=== PATIENT | male | born 1945 | race Caucasian/White ===

== ENCOUNTER 2018-06-24 14:40 | Inpatient (IN) | payer MEDICARE ==
[~2018-06-24 14:40] MED LIST: ISOVUE-370 76%-LOCM 1 ML ONE
[2018-06-24 15:06] LABS: Hemoglobin 13.3 g/dL (14.0-18.0); Mean Corpuscular HGB CONC 33.5 g/dL (32.0-36.0); Mean Corpuscular Hemoglobin 31.1 pg (27.0-31.0); Mean Corpuscular Volume 92.7 fL (78.0-98.0); Mean Platelet Volume 7.1 fL (7.4-10.4); Platelet Count 207 thou/uL (130-400); RBC Distribution Width 12.1 % (11.5-14.5); Red Blood Cell (RBC) Count 4.27 mill/uL (4.70-6.10); White Blood Cell (WBC) Count 3.7 thou/uL (4.8-10.8)
--- NOTE | 2018-06-24 15:07 | RAD ---
PORTABLE CHEST: History: Cough, fever. FINDINGS: Heart size and mediastinum within normal limits. The lungs are clear of infiltrates. There is slight elevation of the right hemidiaphragm. IMPRESSION: No active intrathoracic disease. POS: TPC
[2018-06-24 15:23] LABS: Band 27 % (5-11); Lymphocytes 8 % (21-51); MDiff Complete? YES; Neutrophil 65 % (42-75); Platelet Morphology Comment Appears Adequate; RBC Morphology Normal
[2018-06-24 15:42] LABS: Bilirubin Small (Negative); Blood, Urine Large (Negative); Clarity TURBID (Clear); Glucose, Urine (Dipstick) Negative (Negative); Leukocyte Large (Negative); Nitrite Negative (Negative); Protein, Urine (Dipstick) 100 mg/dL (Neg-Trace); Specific Gravity, Urine 1.027 (1.002-1.036); pH, Urine 5.5 (5.0-9.0)
[2018-06-24 15:44] LABS: ALT (SGPT) 23 U/L (8-55); AST (SGOT) 18 U/L (5-34); Albumin 3.9 g/dL (3.4-4.8); Alkaline Phosphatase 97 U/L (40-150); Anion Gap 18 mmol/L (10-20); BUN (Urea Nitrogen) 19 mg/dL (8.4-25.7); CK (CPK) 157 U/L (30-200); Calc. Creatinine Clearance 0 mL/min (70-130); Calcium 8.5 mg/dL (7.8-10.44); Carbon Dioxide 16 mmol/L (23-31); Chloride 105 mmol/L (98-107); Estimated GFR-MDRD 61; Globulin 2.6 g/dL (2.4-3.5); Glucose 139 mg/dL (83-110); Lipase 14 U/L (8-78); Potassium 3.8 mmol/L (3.5-5.1); Protein, Total 6.5 g/dL (5.8-8.1); Sodium 135 mmol/L (136-145)
[2018-06-24 15:48] LABS: Bacteria/HPF 4+ HPF (None Seen); Hyaline Casts/LPF 4-6 HYALINE CAST LPF (0-3 Hyaline); Pathc Cast-AUWi Flag 1.25 (0-2.49); Squamous Epithelial 0-3 HPF (0-3)
--- NOTE | 2018-06-24 19:21 | CT ---
CT ABDOMEN AND PELVIS WITH CONTRAST 06/24/18 Multiple axial tomograms obtained through the abdomen and pelvis with IV enhancement. INDICATIONS: Abdominal pain. Sepsis. Small nodule in the anterior right lung base measuring in the 5 to 6 mm range. Streaky atelectasis o r infiltrate in both lung bases slightly more prominent on the right. Liver, spleen, and pancreas unremarkable. Adrenal glands normal. Kidneys show mild bilateral perinephric stranding and perinephric edema. There is no hydronephrosis. Both kidneys show symmetric function and enhancement. No evidence of urinary tract calculus. Urinary bladder is mildly distended. There is mild bladder wall thickening. The prostate is prominent and the re is heterogeneity in the prostate gland with areas of low attenuation present. Small bowel loops normal caliber. Scattered diverticula along the left colon without evidence of dive rticulitis. Numerous postoperative clips in the left lower quadrant and pelvic region. Aorta normal caliber. No adenopathy seen. Surgical clips in the subcutaneous and abdominal wall left mid abdomen. IMPRESSION: 1. Perinephric stranding and edema. Prostatic hypertrophy with heterogeneity in the prostate. Th ere are areas of low attenuation in the prostate which could represent abscess formation. There is mi ld bladder wall thickening. Suggest urology consultation and consider urinary tract infection. 2. Tiny nodule in the anterior right lung base and bibasilar atelectasis in the lung bases. Code LN POS: L[facility]
[2018-06-24 19:22] LABS: Lactic Acid 1.2 mmol/L (0.5-2.2)
[2018-06-24] MEDS ORDERED: Ondansetron PF 4 MG/2 ML Vial IVP PRN (21:11)
[2018-06-24] MEDS ORDERED: Ondansetron ODT 4 MG TAB PO PRN (21:11)
[2018-06-24] MEDS: Sodium Chloride 0.45% 1,000 ML IV SCH (22:58)
[2018-06-24 23:27] LABS: Lactic Acid 1.4 mmol/L (0.5-2.2)
[2018-06-25] MEDS: Vancomycin HCl 1 GM in Premix Bag 1 BAG IVPB SCH ×2 (00:03→12:26)
[2018-06-25 00:51] VITALS: BMI 26.0
--- NOTE | 2018-06-25 02:11 | HP ---
PRIMARY CARE DOCTOR: No PCP. CODE STATUS: Full code. TIME OF EVALUATION: 7:15 p.m. CHIEF COMPLAINT: Fever. HISTORY OF PRESENT ILLNESS: This is a 73-year-old male patient with past medical history of hyperlipidemia, came to the hospital after having fever, increased urinary frequency, urgency, incontinence, no clear triggers, no alleviating factors. Symptoms were moderate to severe. Symptoms have been present for about a couple of days, getting worse today. REVIEW OF SYSTEMS: CONSTITUTIONAL: The patient has fever, chills, generalized weakness. RESPIRATORY: No cough, sputum production, or shortness of breath. CARDIOVASCULAR: No chest pain or palpitations. GASTROINTESTINAL: No nausea, no vomiting, diarrhea, or abdominal pain. 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 GENITOURINARY: The patient has increased frequency, burning on urination. EXTREMITIES: No leg swelling. All other systems were reviewed and negative, except for the findings mentioned above. PAST MEDICAL HISTORY: As mentioned in the HPI. FAMILY HISTORY:Reviewed and no noncontributory for current presentation. SURGICAL HISTORY: Cholecystectomy, and history of hernia repair. PSYCHIATRIC HISTORY: No previous psych history. SOCIAL HISTORY: The patient drinks socially rarely. No drug use. No smoking history. KNOWN ALLERGIES: No known drug allergies reported. MEDICATIONS: Nexium and atorvastatin. PHYSICAL EXAMINATION: VITAL SIGNS: On presentation, blood pressure 160/100, heart rate 143, respiratory rate was 31, temperature 99.9, oxygen saturation 100 on room air. GENERAL APPEARANCE: The patient is alert, oriented, not in acute distress. HEENT: Eyes, normal conjunctivae. Moist oral mucosa. Anicteric. No JVD. RESPIRATORY: Bilateral air entry. No rales. No wheezing. Symmetric expansion. CARDIOVASCULAR: The patient is tachycardic. Regular rhythm. No murmurs, no gallops, no edema. ABDOMEN: Soft. Normal bowel sounds. MUSCULOSKELETAL: Baseline range of motion. No sternal tenderness. SKIN: Warm and intact. No pallor. No rash. No redness. Peripheral pulses are present. Capillary refill seems to be intact. NEURO: No evidence of any new focal weakness. Baseline speech. Cranial nerves seems to be intact. PSYCH: The patient is in good mood. No anxiety. Optimal judgment. LABORATORY AND DIAGNOSTIC DATA: EKG was reviewed. The patient has sinus tachycardia at a rate of 144 with NC 112, QRS 98, QT corrected 439, incomplete RBBB. Labs were reviewed. The patient has white count 3.7, hemoglobin 13.3, MCV 92.7, platelet count 207. Chemistry 135, potassium 3.9, chloride 105, carbon dioxide 16, anion gap of 18, BUN 19, creatinine 1.18, GFR 61, glucose 139, lactic acid 3.9, calcium 9.5, total bilirubin 2.0. LFTs were negative. Troponin was negative. UA was positive with white count greater than 50, too numerous to count. Chest x-ray was reviewed. The patient has no active intrathoracic disease. CT abdomen and pelvis was done, perinephric stranding and edema, prostatic hypertrophy with heterogeneity in the prostate. There are areas of low attenuation in the prostate, which could represent abscess formation. There is mild bladder wall thickening, suggest Urology consultation and consider urinary tract infection, 2 tiny nodules in the right lung base and bibasilar atelectasis of the lung bases. ASSESSMENT AND PLAN: The patient presented to the hospital with following medical problems: 1. Sepsis, the patient is tachycardic, febrile, the patient is started on antibiotics, continue IV fluids, follow cultures, adjust antibiotics as per culture and sensitivity. Source is prostate abscess with UTI, possible pyelonephritis. Continue hydration as needed for sepsis. 2. Possible prostate abscess, seen on the pelvis CT as above, we will call Urology, we will follow recommendations. 3. Hyponatremia, sodium 135. This is mild, no need for any acute intervention at this point. We will monitor, we will treat accordingly. 4. Lactic acidosis secondary to sepsis, initial lactic acid was 3.9, came down to 1.2. We will treat underlying condition. 5. Urinary tract infection. UA is positive. We will follow cultures, treatment as above. 6. Hyperlipidemia. Low-cholesterol diet is advised. Reconcile home medications. 7. Deep venous thrombosis prophylaxis. 8. Risk assessment, the patient is a high risk due to sepsis. Job ID: [id number] [facility]
[2018-06-25 05:50] LABS: Anion Gap 10 mmol/L (10-20); BUN (Urea Nitrogen) 15 mg/dL (8.4-25.7); Calc. Creatinine Clearance 85 mL/min (70-130); Calcium 8.1 mg/dL (7.8-10.44); Carbon Dioxide 21 mmol/L (23-31); Chloride 109 mmol/L (98-107); Estimated GFR-MDRD 83; Glucose 92 mg/dL (83-110); Potassium 4.3 mmol/L (3.5-5.1); Sodium 136 mmol/L (136-145)
[2018-06-25 06:01] LABS: Hemoglobin 12.4 g/dL (14.0-18.0); Mean Corpuscular HGB CONC 33.2 g/dL (32.0-36.0); Mean Corpuscular Hemoglobin 30.8 pg (27.0-31.0); Mean Corpuscular Volume 92.8 fL (78.0-98.0); Mean Platelet Volume 7.2 fL (7.4-10.4); Platelet Count 178 thou/uL (130-400); RBC Distribution Width 12.3 % (11.5-14.5); Red Blood Cell (RBC) Count 4.02 mill/uL (4.70-6.10); White Blood Cell (WBC) Count 16.1 thou/uL (4.8-10.8)
[2018-06-25 06:02] LABS: Band 28 % (5-11); Lymphocytes 2 % (21-51); MDiff Complete? YES; Monocytes 2 % (0-10); Neutrophil 68 % (42-75); Platelet Morphology Comment Appears Adequate
[2018-06-25] MEDS: Sodium Chloride 0.45% 1,000 ML IV SCH (06:23)
[2018-06-25] MEDS: Acetaminophen 325 MG TAB PO PRN ×2 (10:20→20:26)
[2018-06-25] MEDS: Sodium Chloride 0.9% 1,000 ML IV SCH ×2 (12:34→23:24)
[2018-06-25] MEDS ORDERED: cefTRIAXone\\ROCEPHIN 2 GM in Sodium Chloride 0.9% 100 ML IVPB SCH (14:00)
[2018-06-25] MEDS: Tamsulosin HCl 0.4 MG CAP PO SCH (20:25)
[2018-06-25] MEDS: Saccharomyces boulardii 250 MG CAP PO SCH (20:25)
[2018-06-25] MEDS: Atorvastatin Calcium 10 MG TAB PO SCH (20:26)
[2018-06-25] MEDS ORDERED: Tamsulosin HCl 0.4 MG CAP PO SCH (21:00)
--- NOTE | 2018-06-25 21:40 | PDOC.PN ---
- Subjective Encounter Start Date: 06/25/18 Encounter Start Time: 12:00 Patient seen and examined for Sepsis. Feels better. No N/V. No new complaints. No overnight events - Objective Resuscitation Status - Order Detail: 06/24/18 21:11 Resuscitation Status Routine Resuscitation Status: FULL: Full Resuscitation MAR Reviewed: Yes Vital Signs & Weight: Vital Signs (12 hours) Temp Pulse Resp BP Pulse Ox 06/25/18 16:15 98.0 F 81 16 112/61 100 06/25/18 13:00 98.3 F 88 16 98/54 L 95 Weight Weight 181 lb 9 oz I&O: 06/24/18 06/25/18 06/26/18 06:59 06:59 06:59 Intake Total 1420 1861 Output Total 500 870 Balance 920 991 Result Diagrams: 06/26/18 04:05 06/26/18 04:06 EKG Reviewed by me: Yes (Tele SR) Phys Exam - Physical Examination Constitutional: NAD Respiratory: no wheezing, no rhonchi Cardiovascular: RRR, no rub Gastrointestinal: soft, non-tender, positive bowel sounds Musculoskeletal: no edema Neurological: moves all 4 limbs Dx/Plan - Plan plan discussed w/ family, DVT proph w/SCDs 1. Sepsis with acute organ dysfunction due to E coli UTI/Prostatitis with abscess/Bacteremia 2. Lactic acidosis 3. HLD 4. BPH 5. Hyponatremia PLAN: Add Ceftriaxone DC Vancomcyin Cont Levaquin Cont IVF Await Urology input AM labs Transfer to medical Postvoid residual Review of Systems - Medications/Allergies Allergies/Adverse Reactions: Allergies Allergy/AdvReac Type Severity Reaction Status Date / Time No Known Allergies Allergy Unverified 06/24/18 22:30 Medications: Current Medications Acetaminophen (Tylenol) 650 mg PO Q4H PRN PRN Reason: Headache/Fever/Mild Pain (1-3) Last Admin: 06/25/18 20:26 Dose: 650 mg Atorvastatin Calcium (Lipitor) 10 mg PO HS CINDI Last Admin: 06/25/18 20:26 Dose: 10 mg Levofloxacin 750 mg/ Device 150 mls @ 100 mls/hr IVPB Q24HR CINDI Last Admin: 06/25/18 16:55 Dose: 150 mls Sodium Chloride (Normal Saline 0.9%) 1,000 mls @ 125 mls/hr IV .Q8H CINDI Last Admin: 06/25/18 12:34 Dose: 1,000 mls Ceftriaxone Sodium 2 gm/ (Sodium Chloride) 100 mls @ 200 mls/hr IVPB Q24HR [facility] Last Admin: 06/25/18 14:54 Dose: 100 mls Ondansetron HCl (Zofran Odt) 4 mg PO Q6H PRN PRN Reason: Nausea/Vomiting Ondansetron HCl (Zofran) 4 mg IVP Q6H PRN PRN Reason: Nausea/Vomiting Pantoprazole Sodium (Protonix) 40 mg PO DAILY [facility] Last Admin: 06/25/18 10:14 Dose: 40 mg Saccharomyces Boulardii (Florastor) 250 [address] [facility] Last Admin: 06/25/18 20:25 Dose: 250 mg Sodium Chloride (Flush - Normal Saline) 10 ml IVF Q12HR [facility] Last Admin: 06/25/18 10:15 Dose: 10 ml Sodium Chloride (Flush - Normal Saline) 10 ml IVF PRN PRN PRN Reason: Saline Flush Tamsulosin HCl (Flomax) 0.4 mg PO [facility] Last Admin: 06/25/18 20:25 Dose: 0.4 mg
--- NOTE | 2018-06-26 00:30 | CON ---
DATE OF CONSULTATION: 06/25/2018 REASON FOR CONSULTATION: Sepsis secondary to urinary tract infection, possible prostate abscess. HISTORY OF PRESENT ILLNESS: Mr. Sanchez is a 73-year-old male with past urologic history significant for microscopic hematuria, status post negative workup by his urologist in [place], Dr. Brent Campos. The patient was visiting family in [place], [place]. On the way home, he developed fever, dizziness, frequent and urgent urination. His condition worsened and they stopped at the [facility] in [place]. The patient was found to be febrile and tachycardic with heart rate up to the 140s. Urinalysis was consistent with urinary tract infection. A CT of the abdomen and pelvis was performed, which demonstrated possible prostate abscess. The patient was admitted, started on broad-spectrum IV antibiotics. Urine culture and blood culture both growing gram-negative rods at this time. Urology was consulted for further evaluation. Over the course of the next 36 hours, the patient has had significant improvement in his symptoms. He is voiding much better. Initially, he was voiding up to every hour; however, right now is voiding every 2 to 3 hours. No Billings catheter was ever placed. He has had postvoid residuals ranging in the 100 to 200 range. His tachycardia has improved. He is much more alert and oriented per his , and he has not had any high-grade fever since antibiotics were initiated. The patient states he has an appointment with Dr. Campos in [place] coming up. He evidently has had cystoscopy for workup of what sounds to be microscopic hematuria in the past. REVIEW OF SYSTEMS: Full 12-point review of systems was performed and is negative other than that mentioned in HPI. PAST MEDICAL HISTORY: Hyperlipidemia. PAST SURGICAL HISTORY: Cholecystectomy, hernia repair. FAMILY HISTORY: Noncontributory. SOCIAL HISTORY: He drinks socially on occasion. No tobacco or illicit drugs. MEDICATIONS: 1. Nexium. 2. Atorvastatin. ALLERGIES: NO KNOWN DRUG ALLERGIES. PHYSICAL EXAMINATION: VITAL SIGNS: Temperature is 98.0, heart rate 81, respirations 16, oxygen saturation 100% on room air, and blood pressure 112/61. GENERAL: He is alert and oriented x3, in no apparent distress. HEENT: Normocephalic and atraumatic. NECK: Supple. No masses or lymphadenopathy. CARDIOVASCULAR: Regular rate and rhythm. PULMONARY: Breathing unlabored. No wheezing. ABDOMEN: Soft, nontender/nondistended. No masses or organomegaly. No suprapubic tenderness to palpation. No suprapubic fullness. No CVA tenderness. GENITOURINARY: Circumcised penis without concerning lesion. Meatus normal. Scrotum normal. Testes and epididymides palpably normal bilaterally. EXTREMITIES: Warm and well perfused. No edema. NEUROLOGIC: No focal deficits. LABORATORY DATA: White blood cell count 16.1, hemoglobin 12.4, hematocrit 37.3, platelets 178. Sodium 136, potassium 4.3, chloride 109, bicarbonate 21, BUN 15, creatinine 0.9. MICROBIOLOGY DATA: Urine culture, presumptive E coli, sensitivities pending. Blood culture x2 demonstrates E coli with sensitivities pending. RADIOLOGY DATA: CT of the abdomen and pelvis performed on 06/24/2018. These films were reviewed. There is no hydroureteronephrosis. No urolithiasis noted. There is some heterogeneity with possible fluid in the prostate and some bladder wall thickening. Bladder is not distended. ASSESSMENT: A 73-year-old male with sepsis secondary to Escherichia coli urinary tract infection, possible prostate abscess. PLAN: I reviewed the natural history and clinical implications of complicated, febrile urinary tract infections with the patient in detail. I explained the need for adequate urinary drainage. At this point, the patient is emptying his bladder relatively well. I performed a bladder scan at the bedside and he had a residual of approximately 115 mL. The patient would like to avoid a Billings catheter at this time. He may have an early prostate abscess, although he is improving clinically on broad-spectrum IV antibiotics. Sensitivities are pending. At this point, continue IV antibiotic therapy. If he continues to improve clinically, he can be discharged to home on culture specific antibiotics, minimum of 2-week course. The patient will require close Urologic followup. He has established with Dr. Campos in [place]. I will contact Dr. Campos myself and try to establish a close followup appointment within the next few days with him. If clinically he deteriorates, he may require either transurethral or ultrasound-guided transrectal unroofing of this fluid within the prostate. We will start the patient on daily tamsulosin as well. Thank you for allowing me to participate in the care of this patient. Job ID: [id number]
[2018-06-26 04:55] LABS: #Eosinphils 0.1 thou/uL (0.0-0.7); #Lymphocytes 0.8 thou/uL (1.20-3.40); #Monocytes 0.7 thou/uL (0.11-0.59); #Neutrophils 8.6 thou/uL (1.40-6.50); %Basophils 0.1 % (0.0-1.0); %Eosinophils 0.6 % (0.0-10.0); %Lymphocytes 7.7 % (21.0-51.0); %Neutrophils 84.6 % (42.0-75.0); Hemoglobin 11.4 g/dL (14.0-18.0); Mean Corpuscular HGB CONC 33.6 g/dL (32.0-36.0); Mean Corpuscular Hemoglobin 30.9 pg (27.0-31.0); Mean Corpuscular Volume 92.1 fL (78.0-98.0); Mean Platelet Volume 7.8 fL (7.4-10.4); Platelet Count 156 thou/uL (130-400); RBC Distribution Width 12.1 % (11.5-14.5); Red Blood Cell (RBC) Count 3.69 mill/uL (4.70-6.10); White Blood Cell (WBC) Count 10.2 thou/uL (4.8-10.8)
[2018-06-26 05:16] LABS: ALT (SGPT) 15 U/L (8-55); AST (SGOT) 22 U/L (5-34); Albumin 2.7 g/dL (3.4-4.8); Alkaline Phosphatase 66 U/L (40-150); Anion Gap 11 mmol/L (10-20); BUN (Urea Nitrogen) 17 mg/dL (8.4-25.7); Bilirubin, Total 0.4 mg/dL (0.2-1.2); Calc. Creatinine Clearance 91 mL/min (70-130); Carbon Dioxide 20 mmol/L (23-31); Chloride 110 mmol/L (98-107); Estimated GFR-MDRD 90; Globulin 2.5 g/dL (2.4-3.5); Glucose 100 mg/dL (83-110); Magnesium 1.7 mg/dL (1.6-2.6); Potassium 3.9 mmol/L (3.5-5.1); Protein, Total 5.2 g/dL (5.8-8.1); Sodium 137 mmol/L (136-145)
[2018-06-26] MEDS: Sodium Chloride 0.9% 1,000 ML IV SCH ×2 (06:08→15:33)
[2018-06-26] MEDS: Acetaminophen 325 MG TAB PO PRN ×2 (08:55→19:33)
--- NOTE | 2018-06-26 12:15 | CON ---
DATE OF CONSULTATION: REASON FOR CONSULTATION: Bacteremia with pyelonephritis, prostatitis. HISTORY OF PRESENT ILLNESS: A 73-year-old admitted with a history of hyperlipidemia, previous BPH who had been managed I believe in [place] where he is from. He is actually from [place], but he went to [place] to a urologist there for periodic monitoring of his BPH. He had been on Flomax and there had been no evidence of elevated PSA. The patient then came here to visit family and developed urinary symptoms with fever. He did have some incontinence and increased urinary frequency with urgency, but no pain. He presented to the emergency room and his maximum temperature on arrival was 99.9. His BP was 160/100 and tachycardia to 143, O2 saturations were 100. He did not appear toxic, did not have any pain, was alert and oriented on arrival. The lung examination showed normal lung sounds. The heart examination other than tachycardia was normal. The abdomen was not tender to palpation. There was no evidence of distention or peritoneal signs. LABORATORY DATA: The initial lab data with a white cell count of 3.7 with a predominance of bands at 27% and creatinine in the 1.18. Liver profile was normal except for bilirubin of 2.0. Albumin was 3.9. Troponin was normal. Sodium 135. Urinalysis with greater than 50 wbc's. The patient had an abdomen and pelvis CT scan with perinephric stranding in both kidneys without hydronephrosis. No calculus or obstruction. Urinary bladder was mildly distended. The prostate had heterogeneity noted. Two sets of blood cultures with E. coli with a broad susceptibility profile. Currently, he is feeling better. He is still not back to normal. No headaches, visual symptoms, sore throat, odynophagia dysphagia. No cough, sputum production, chest pain, no abdominal pain or diarrhea. Dysuria and frequency have improved. No genitourinary symptoms. He is voiding in the urinal. PAST MEDICAL HISTORY: 1. Hypertension. 2. Hyperlipidemia. 3. BPH. PAST SURGICAL HISTORY: 1. Cholecystectomy. 2. Hernia repair. SOCIAL HISTORY: He lives in [place]. He is retired and drinks occasionally and there is no smoking history. . ALLERGIES: NONE. CURRENT MEDICATIONS: 1. Ceftriaxone. 2. Levofloxacin. PHYSICAL EXAMINATION: VITAL SIGNS: T-max 100.6. He has been afebrile since, BP normal. Other vital signs are normal. O2 saturation 98%. SKIN: Examination is not remarkable. NECK: Neck is supple. No jugular venous distention. No lymphadenopathy. HEENT: Ocular movements conjugate. Oral cavity unremarkable. LUNGS: Symmetric. Clear breath sounds. S1, S2. Regular rate. No S3 or S4. ABDOMEN: Soft, not distended or tender. No ascites. No bladder distention. No genital abnormalities. No joint inflammatory activity. Pulses 1+ in dorsalis pedis. Neurologic: Nonfocal including cognitive function. LABORATORY DATA: Followup labs, white cell count down to 10.2, hemoglobin 11, platelets 156. Sodium 136, creatinine 0.9. IMAGING: Chest x-ray with no abnormalities noted. ASSESSMENT: Chronic benign prostatic hypertrophy, now with invasive urinary tract infection with some element of prostatitis, may have early prostatic abscess. He does have evidence of pyelonephritis too as well. The organism is broadly susceptible to various antimicrobials. There is no evidence of obstruction. DISCUSSION: The main concern here would be with possible development of prostatic abscess. Sometimes those need to be surgically drained, although in this case, probably a conservative management will suffice in view of the rapid improvement. I would nonetheless treat him for a longer periods of time, 4-6 weeks with oral antimicrobial therapy and we could choose quinolone or Bactrim for discharge planning. Job ID: [id number]
[2018-06-26] MEDS ORDERED: Sodium Chloride 0.9% 1,000 ML IV SCH (17:54)
--- NOTE | 2018-06-26 18:52 | PRG ---
DATE OF SERVICE: 06/26/2018 SUBJECTIVE: Mr. Sanchez is doing much better. He is urinating better. He reports his balance is better. He has been ambulating. He has been afebrile. He has no complaints at this time. OBJECTIVE: VITAL SIGNS: Temperature 98.1, pulse 81, respirations 12, blood pressure 121/79, oxygen saturation 98% on room air. GENERAL: He is alert and oriented x3, in no apparent distress. CARDIOVASCULAR: Regular rate and rhythm. PULMONARY: Breathing unlabored. ABDOMEN: Soft, nontender/nondistended. No masses or organomegaly. No suprapubic tenderness to palpation. No suprapubic fullness. EXTREMITIES: Warm and well perfused. No edema. NEUROLOGICAL: No focal deficits. LABORATORY DATA: White blood cell count 10.2, hemoglobin 11.4, hematocrit 34, platelets 156. Microbiology; urine culture and blood culture with E. coli. ASSESSMENT: A 73-year-old male with sepsis secondary to urinary tract infection and possible early prostate abscess. PLAN: The patient continues to improve clinically. He likely will need IV antibiotics throughout the next 24 hours. If he continues to improve, the patient can be discharged home on culture specific antibiotics. I have discussed this with his urologist in [place], [place], Dr. Campos. The patient has a followup appointment with Dr. Campos on July 02 at 9:30 a.m. in [place]. I reiterated to the patient that he should keep this appointment. He will also need to bring a full set of records from this hospitalization as well as a disc with a copy of his CT scan images on it. If the patient's clinical course deteriorates in the interim, additional urologic intervention may be necessary. Job ID: [id number]
[2018-06-26] MEDS: Atorvastatin Calcium 10 MG TAB PO SCH (19:34)
[2018-06-26] MEDS: Tamsulosin HCl 0.4 MG CAP PO SCH (19:34)
[2018-06-26] MEDS: Saccharomyces boulardii 250 MG CAP PO SCH (19:34)
[2018-06-26] MEDS ORDERED: Senokot 8.6 MG TAB PO PRN (20:48)
--- NOTE | 2018-06-26 20:51 | PDOC.PN ---
- Subjective Encounter Start Date: 06/26/18 Encounter Start Time: 16:30 Patient seen and examined for Sepsis. No dysuria/hematuria/frequency. No new complaints. No overnight events - Objective Resuscitation Status - Order Detail: 06/24/18 21:11 Resuscitation Status Routine Resuscitation Status: FULL: Full Resuscitation MAR Reviewed: Yes Vital Signs & Weight: Vital Signs (12 hours) Temp Pulse Resp BP Pulse Ox 06/26/18 20:30 99.8 F H 06/26/18 20:00 95 06/26/18 19:39 101.5 F H 89 20 133/74 95 06/26/18 16:10 98.1 F 88 16 158/79 H 96 06/26/18 12:37 65 16 141/70 H 96 06/26/18 08:55 98.5 F 72 16 128/68 98 Weight Weight 181 lb 9 oz I&O: 06/25/18 06/26/18 06/27/18 06:59 06:59 06:59 Intake Total 1420 3464 340 Output Total 500 2270 Balance 920 1194 340 Result Diagrams: 06/26/18 04:05 06/26/18 04:06 Phys Exam - Physical Examination Constitutional: NAD Respiratory: no wheezing, no rhonchi Cardiovascular: RRR, no rub Gastrointestinal: soft, non-tender, positive bowel sounds Musculoskeletal: no edema Neurological: moves all 4 limbs Dx/Plan - Plan DVT proph w/SCDs 1. Sepsis with acute organ dysfunction due to E coli UTI/Prostatitis with abscess/Bacteremia 2. Lactic acidosis 3. HLD 4. BPH 5. Hyponatremia PLAN: Cont Levaquin DC IVF Urology/ID input appreciated Cont Flomax Microbiology 06/24/18 Unknown Urine clean catch Urine Culture - Final Escherichia coli 06/24/18 14:50 Venous blood - Left Hand Blood Culture - Preliminary Escherichia coli 06/24/18 14:45 Venous blood - Right Hand Blood Culture - Preliminary Escherichia coli Review of Systems - Review of Systems Respiratory: negative: Cough, Dry, Shortness of Breath, Hemoptysis, SOB with Excertion, Pleuritic Pain, Sputum, Wheezing Cardiovascular: negative: chest pain, palpitations, orthopnea, paroxysmal nocturnal dyspnea, edema, light headedness, other - Medications/Allergies Allergies/Adverse Reactions: Allergies Allergy/AdvReac Type Severity Reaction Status Date / Time No Known Allergies Allergy Unverified 06/24/18 22:30 Medications: Current Medications Acetaminophen (Tylenol) 650 mg PO Q4H PRN PRN Reason: Headache/Fever/Mild Pain (1-3) Last Admin: 06/26/18 19:33 Dose: 650 mg Atorvastatin Calcium (Lipitor) 10 mg PO [facility] Last Admin: 06/26/18 19:34 Dose: 10 mg Levofloxacin 750 mg/ Device 150 mls @ 100 mls/hr IVPB Q24HR [facility] Last Admin: 06/26/18 17:43 Dose: 150 mls Ondansetron HCl (Zofran Odt) 4 mg PO Q6H PRN PRN Reason: Nausea/Vomiting Ondansetron HCl (Zofran) 4 mg IVP Q6H PRN PRN Reason: Nausea/Vomiting Pantoprazole Sodium (Protonix) 40 mg PO DAILY [facility] Last Admin: 06/26/18 08:55 Dose: 40 mg Saccharomyces Boulardii (Florastor) 250 mg PO [facility] Last Admin: 06/26/18 19:34 Dose: 250 mg Sodium Chloride (Flush - Normal Saline) 10 ml IVF Q12HR [facility] Last Admin: 06/26/18 19:34 Dose: 10 ml Sodium Chloride (Flush - Normal Saline) 10 ml IVF PRN PRN PRN Reason: Saline Flush Tamsulosin HCl (Flomax) 0.4 mg PO [facility] Last Admin: 06/26/18 19:34 Dose: 0.4 mg
[2018-06-27] MEDS: Atorvastatin Calcium 10 MG TAB PO SCH (20:03)
[2018-06-27] MEDS: Saccharomyces boulardii 250 MG CAP PO SCH (20:03)
[2018-06-27] MEDS: Tamsulosin HCl 0.4 MG CAP PO SCH (20:03)
--- NOTE | 2018-06-27 23:12 | PDOC.PN ---
- Subjective Encounter Start Date: 06/27/18 Encounter Start Time: 10:45 Patient seen and examined for Sepsis. Urinary frequency +. No new complaints. No overnight events - Objective Resuscitation Status - Order Detail: 06/24/18 21:11 Resuscitation Status Routine Resuscitation Status: FULL: Full Resuscitation MAR Reviewed: Yes Vital Signs & Weight: Vital Signs (12 hours) Temp Pulse Resp BP BP Pulse Ox 06/27/18 15:54 98.2 F 91 16 165/90 H 06/27/18 11:35 98.7 F 84 16 145/79 H 97 Weight Weight 181 lb 9 oz I&O: 06/26/18 06/27/18 06/28/18 06:59 06:59 06:59 Intake Total 3464 1140 2560 Output Total 2270 2000 Balance 1194 -860 2560 Result Diagrams: 06/28/18 06:43 06/28/18 06:43 Phys Exam - Physical Examination Constitutional: NAD Respiratory: no wheezing, no rhonchi Cardiovascular: RRR, no rub Gastrointestinal: soft, non-tender, positive bowel sounds Musculoskeletal: no edema Neurological: moves all 4 limbs Dx/Plan - Plan DVT proph w/SCDs 1. Sepsis with acute organ dysfunction due to E coli UTI/Prostatitis with abscess/Bacteremia 2. Lactic acidosis 3. HLD 4. BPH 5. Hyponatremia PLAN: Start IV Cipro per ID DC Levaquin Monitoring overnight due to fever this AM Cont Flomax DC in AM if stable Review of Systems - Review of Systems Respiratory: negative: Cough, Dry, Shortness of Breath, Hemoptysis, SOB with Excertion, Pleuritic Pain, Sputum, Wheezing Cardiovascular: negative: chest pain, palpitations, orthopnea, paroxysmal nocturnal dyspnea, edema, light headedness, other - Medications/Allergies Allergies/Adverse Reactions: Allergies Allergy/AdvReac Type Severity Reaction Status Date / Time No Known Allergies Allergy Unverified 06/24/18 22:30 Medications: Current Medications Acetaminophen (Tylenol) 650 mg PO Q4H PRN PRN Reason: Headache/Fever/Mild Pain (1-3) Last Admin: 06/26/18 19:33 Dose: 650 mg Atorvastatin Calcium (Lipitor) 10 mg PO HS CINDI Last Admin: 06/27/18 20:03 Dose: 10 mg Ciprofloxacin/Dextrose 400 mg/ (Device) 200 mls @ 200 mls/hr IVPB Q12HR [facility] Last Admin: 06/27/18 20:03 Dose: 200 mls Ondansetron HCl (Zofran Odt) 4 mg PO Q6H PRN PRN Reason: Nausea/Vomiting Ondansetron HCl (Zofran) 4 mg IVP Q6H PRN PRN Reason: Nausea/Vomiting Pantoprazole Sodium (Protonix) 40 mg PO DAILY [facility] Last Admin: 06/27/18 08:41 Dose: 40 mg Saccharomyces Boulardii (Florastor) 250 mg PO [facility] Last Admin: 06/27/18 20:03 Dose: 250 mg Senna (Senokot) 2 tab PO HSPRN PRN PRN Reason: Constipation Sodium Chloride (Flush - Normal Saline) 10 ml IVF Q12HR [facility] Last Admin: 06/27/18 20:04 Dose: 10 ml Sodium Chloride (Flush - Normal Saline) 10 ml IVF PRN PRN PRN Reason: Saline Flush Tamsulosin HCl (Flomax) 0.4 mg PO [facility] Last Admin: 06/27/18 20:03 Dose: 0.4 mg
[2018-06-28 07:14] VITALS: BP 146/80; TEMP 98
[2018-06-28 07:23] LABS: #Eosinphils 0.2 thou/uL (0.0-0.7); #Lymphocytes 1.3 thou/uL (1.20-3.40); #Monocytes 0.9 thou/uL (0.11-0.59); #Neutrophils 4.4 thou/uL (1.40-6.50); %Basophils 0.6 % (0.0-1.0); %Eosinophils 2.8 % (0.0-10.0); %Lymphocytes 18.7 % (21.0-51.0); %Monocytes 13.6 % (0.0-10.0); %Neutrophils 64.4 % (42.0-75.0); Hemoglobin 12.2 g/dL (14.0-18.0); Mean Corpuscular HGB CONC 33.5 g/dL (32.0-36.0); Mean Corpuscular Hemoglobin 30.4 pg (27.0-31.0); Mean Corpuscular Volume 90.8 fL (78.0-98.0); Mean Platelet Volume 7.5 fL (7.4-10.4); Platelet Count 200 thou/uL (130-400); RBC Distribution Width 12.1 % (11.5-14.5); Red Blood Cell (RBC) Count 4.02 mill/uL (4.70-6.10); White Blood Cell (WBC) Count 6.9 thou/uL (4.8-10.8)
[2018-06-28 07:55] LABS: Anion Gap 11 mmol/L (10-20); BUN (Urea Nitrogen) 12 mg/dL (8.4-25.7); Calc. Creatinine Clearance 85 mL/min (70-130); Calcium 8.5 mg/dL (7.8-10.44); Carbon Dioxide 24 mmol/L (23-31); Chloride 107 mmol/L (98-107); Estimated GFR-MDRD 83; Glucose 107 mg/dL (83-110); Magnesium 1.5 mg/dL (1.6-2.6); Potassium 3.7 mmol/L (3.5-5.1); Sodium 138 mmol/L (136-145)
[2018-06-28] MEDS ORDERED: Magnesium Sulfate 2 GM in Sodium Chloride 0.9% 100 ML IVPB SCH (08:45)
[2018-06-28] MEDS ORDERED: Magnesium Chloride 64 MG TAB PO SCH (10:00)
[2018-06-28] MEDS ORDERED: Ciprofloxacin 500 MG TAB PO SCH (10:00)
--- NOTE | 2018-06-28 12:00 | DIS ---
DATE OF ADMISSION: 06/24/2018 DATE OF DISCHARGE: 06/28/2018 DISCHARGE DISPOSITION: Home. Please note, the patient lives in [place]. FOLLOWUP: The patient was advised follow up with his primary urologist in 3 days as scheduled. ALLERGIES: NO KNOWN DRUG ALLERGIES. DISCHARGE MEDICATIONS: 1. Ciprofloxacin 500 mg twice a day. 2. Lipitor 10 mg daily. 3. Florastor 250 mg daily. 4. Flomax 0.4 mg at bedtime. 5. Nexium 20 mg daily. The patient was seen on the day of discharge. Denies any new complaints. No chest pain, shortness of breath, or palpitations reported. BRIEF HOSPITAL COURSE: The patient is a 73-year-old male who presented to the emergency room with fever. His workup was consistent with sepsis secondary to Escherichia coli urinary tract infection/prostatitis with abscess formation. His blood culture 2/2 was positive for Escherichia coli as well. CT scan of the abdomen and pelvis in the emergency room showed perinephric stranding and edema with low attenuation of the prostate, which could represent abscess formation. The prostate was hypertrophied with heterogenicity. There was also mild bladder wall thickening. He showed good improvement with IV quinolones. WBC count on the day of discharge is 6.9 from 16.1. He also had 28% bandemia on admission, which has resolved. His lactic acid on admission was 3.9. He also had abnormal LFTs with total bilirubin 2.0 on admission, which has resolved. He was evaluated by Infectious Disease as well as well as Urology, Dr. Fredis Marte. He will follow up with Dr. Campos in [place] on July 02, at 9:30 a.m. I advised the patient to keep this appointment. A copy of the CT scan of the abdomen was provided on the disc. He is afebrile and has been cleared by consultants for discharge. FINAL DIAGNOSES: 1. Sepsis with acute organ dysfunction secondary to Escherichia coli urinary tract infection/prostatitis with abscess and Escherichia coli bacteremia. 2. Lactic acidosis, resolved. 3. Abnormal liver function tests secondary to sepsis, resolved. 4. Hyperlipidemia. 5. Benign prostatic hypertrophy. 6. Hyponatremia. 7. Hypomagnesemia. Started on replacement. Please note, that this was not replaced intravenously since the patient lost IV access. 8. Chronic anemia. Primary care physician advised to follow. 9. A small nodule in the anterior right lung base measuring 5 to 6 mm. Primary care physician advised to follow. PLAN: Plan was discussed with the patient and the family in detail. He stated understanding. Job ID: [id number] [id number]
== END 2018-06-28 11:22 | disposition home or self-care (01) | DRG 872 ==
LOC: ERS 14:40 → 2NO 21:10 → T4-B 06-26 15:58
PROVIDERS: ADMIT Emergency Medicine; ATTEND Emergency Medicine
DX: A41.9 Sepsis, unspecified organism (principal); N41.2 Abscess of prostate; E87.1 Hypo-osmolality and hyponatremia; N39.0 Urinary tract infection, site not specified; E87.2 Acidosis; E78.5 Hyperlipidemia, unspecified; R65.20 Severe sepsis without septic shock; B96.20 Unspecified Escherichia coli [E. coli] as the cause of diseases classified elsewhere; N41.9 Inflammatory disease of prostate, unspecified; N40.0 Benign prostatic hyperplasia without lower urinary tract symptoms; E83.42 Hypomagnesemia; D64.9 Anemia, unspecified; R91.1 Solitary pulmonary nodule; Z90.49 Acquired absence of other specified parts of digestive tract
CPT/HCPCS: 36415; 71045; 74177; 80048; 80053; 81003; 81015; 82550; 83605; 83690; 83735; 84484; 85025; 87040; 87077; 87086; 87149; 87186; 87804; 93005; 96365; J0696; J0744; J1956; J3370; J3475; J7050; Q9966